=== PATIENT | female | born 1990 | race Caucasian/White ===

== ENCOUNTER 2016-11-08 20:27 | Inpatient (IN) | payer MEDICAID, OTHER ==
[~2016-11-08] VITALS: Ht 160 cm; Wt 63.9 kg
[~2016-11-08 20:27] MED LIST: MACR100 PO; NOCURR; OLAN5Z PO
[2016-11-08 21:44] LABS: BASOPHILS % (AUTO) 0.3 % (0.0-2.0); EOSINOPHILS % (AUTO) 1.5 % (1.0-6.0); HEMOGLOBIN 13.2 g/dL (12.0-16.0); LYMPHOCYTES # (AUTO) 2.2 K/uL (1.0-4.8); LYMPHOCYTES % (AUTO) 26.7 % (22.0-44.0); MEAN CORPUSCULAR HGB CONC 33.9 G/dL (31.0-37.0); MEAN CORPUSCULAR VOLUME 83 fL (80-100); MONOCYTES # (AUTO) 0.9 K/uL (0.1-1.0); NEUTROPHILS % (AUTO) 60.5 % (40.0-70.0); PLATELET COUNT (AUTO) 228 K/uL (150-450); RED BLOOD CELL COUNT(AUTO) 4.72 MIL/uL (4.00-5.20); RED CELL DISTRIBUTION WIDTH 13.8 % (11.5-14.5); WHITE BLOOD COUNT (AUTO) 8.3 K/uL (4.5-11.0)
[2016-11-08 21:55] LABS: ANION GAP 14 mmol/L (8-16); CALCIUM, TOTAL 9.3 mg/dL (8.8-10.5); CARBON DIOXIDE 24 mmol/L (22-29); CHLORIDE 103 mmol/L (98-107); CREATININE 0.87 mg/dL (0.60-1.30); GLOMERULAR FILTR. RATE CALC > 60 mL/min (>60); POTASSIUM 3.5 mmol/L (3.5-5.1); SODIUM SERUM 141 mmol/L (136-145); UREA NITROGEN, BLOOD 16 mg/dL (7-18)
[2016-11-08 22:01] LABS: ALANINE AMINOTRANSFERASE 34 U/L (12-78); ALBUMIN 4.5 g/dL (3.4-5.0); ASPARTATE AMINOTRANSFERASE 36 U/L (15-37); BILIRUBIN,TOTAL 1.7 mg/dL (0.1-1.0); TOTAL PROTEIN, SERUM 8.2 g/dL (6.4-8.2)
[2016-11-08 22:36] LABS: CHOL/HDL RATIO 2.4 (3.9-5.7)
[2016-11-08] MEDS: HALOPERIDOL 5 MG TABLET PO PRN (22:41)
[2016-11-08] MEDS: LORazepam 2 MG TABLET PO PRN (22:41)
[2016-11-08 23:16] LABS: APPEARANCE,URINE CLOUDY (CLEAR); GLUCOSE, URINE (UA) NEGATIVE (NEGATIVE); KETONES,URINE >=80 mg/dL (NEGATIVE); LEUKOCYTE ESTERASE ,URINE MODERATE (NEGATIVE); OCCULT BLOOD,URINE MODERATE (NEGATIVE); PROTEIN,URINE NEGATIVE (NEGATIVE)
[2016-11-08 23:17] LABS: ADD UA MICROSCOPIC YES
[2016-11-08 23:26] LABS: SQUAMOUS EPITHELIAL CELL,UR Few /LPF (None Seen)
[2016-11-09 00:03] VITALS: BP 114/66
[2016-11-09] MEDS ORDERED: PNEUMOCOCCAL VACCINE POLYVALENT 0.5 ML VIAL [PPSV23] IM ONE (01:00)
[2016-11-09 08:20] LABS: HEMOGLOBIN A1C 4.7 % (4.5-6.2)
[2016-11-09 08:31] VITALS: BP 110/66
[2016-11-09 08:40] LABS: CHOL/HDL RATIO 2.6 (3.9-5.7); THYROID STIMULATING HORMONE 1.66 uIU/mL (0.36-3.74)
[2016-11-09] MEDS: PALIPERIDONE 3 MG ER TABLET PO SCH (16:27)
[2016-11-09 16:36] VITALS: BP 116/83
[2016-11-09] MEDS: LORazepam 2 MG TABLET PO PRN (17:00)
[2016-11-09] MEDS: HALOPERIDOL 5 MG TABLET PO PRN (17:00)
[2016-11-09] MEDS ORDERED: IBUPROFEN 400 MG TABLET PO PRN (23:00)
[2016-11-09] MEDS ORDERED: ACETAMINOPHEN 325 MG TABLET PO PRN (23:00)
[2016-11-10 00:32] VITALS: BP 107/76
[2016-11-10] MEDS: ZOLPIDEM TARTRATE 10 MG TABLET PO PRN ×2 (00:33→21:01)
[2016-11-10] MEDS ORDERED: DiphenhydrAMINE HCL 50 MG/ML VIAL IM ONE (01:00)
[2016-11-10] MEDS ORDERED: LORazepam 2 MG/ML VIAL IM ONE (01:00)
[2016-11-10] MEDS ORDERED: HALOPERIDOL LACTATE 5 MG/ML VIAL IM ONE (01:00)
[2016-11-10] MEDS: PALIPERIDONE 3 MG ER TABLET PO SCH ×2 (08:37→16:06)
[2016-11-10] MEDS: LORazepam 2 MG TABLET PO PRN ×2 (08:37→15:52)
[2016-11-10] MEDS: HALOPERIDOL 5 MG TABLET PO PRN ×2 (08:37→15:52)
[2016-11-10 08:38] LABS: CHOL/HDL RATIO 2.9 (3.9-5.7); THYROID STIMULATING HORMONE 1.28 uIU/mL (0.36-3.74)
[2016-11-10 09:19] LABS: HEMOGLOBIN A1C 4.8 % (4.5-6.2)
[2016-11-10 16:08] VITALS: BP 109/66
[2016-11-11 06:19] VITALS: BP 116/60
[2016-11-11 08:29] VITALS: BP 106/61
[2016-11-11] MEDS: LORazepam 2 MG TABLET PO PRN (09:14)
[2016-11-11] MEDS: PALIPERIDONE 3 MG ER TABLET PO SCH ×2 (09:14→16:01)
[2016-11-11] MEDS: HALOPERIDOL 5 MG TABLET PO PRN (09:32)
[2016-11-11] MEDS ORDERED: PALI3 PO (14:55)
== END 2016-11-11 17:05 | disposition home or self-care (01) | DRG 751 ==
LOC: EMS 20:28 → B3A 22:37
PROVIDERS: ADMIT Psychiatry & Neurology Child & Adolescent Psychiatry; ATTEND Psychiatry & Neurology Child & Adolescent Psychiatry
DX: F29 Unspecified psychosis not due to a substance or known physiological condition (principal); F20.0 Paranoid schizophrenia; R45.87 Impulsiveness; F17.210 Nicotine dependence, cigarettes, uncomplicated; Z91.14 Patient's other noncompliance with medication regimen; Z83.3 Family history of diabetes mellitus; Z87.440 Personal history of urinary (tract) infections; Z91.19 Patient's noncompliance with other medical treatment and regimen; Z88.0 Allergy status to penicillin; Z71.6 Tobacco abuse counseling; Z72.89 Other problems related to lifestyle; Z71.41 Alcohol abuse counseling and surveillance of alcoholic; Z28.21 Immunization not carried out because of patient refusal
CPT/HCPCS: 83036; 84436; 84439; 84443; 87081; 99285; G0480; J1200; J1630; J2060